=== PATIENT | female | born 1970 | race African-American/Black ===

== ENCOUNTER 2019-02-10 19:02 | Emergency (ER) | payer OTHER ==
[~2019-02-10] VITALS: Ht 180.3 cm; Wt 81.8 kg
[2019-02-10 19:14] VITALS: BP 120/57
== END 2019-02-10 20:59 | disposition left against medical advice (07) ==
LOC: EMS 19:04
DX: M79.672 Pain in left foot (principal); R51 Headache; F17.210 Nicotine dependence, cigarettes, uncomplicated

== ENCOUNTER 2019-02-11 10:02 | Inpatient (IN) | payer MEDICAID ==
[~2019-02-11] VITALS: Ht 180.3 cm; Wt 83.0 kg
[2019-02-11 11:01] VITALS: BP 130/76
[2019-02-11] MEDS ORDERED: HALOPERIDOL 5 MG TABLET PO PRN (11:15)
[2019-02-11] MEDS ORDERED: INFLUENZA VIRUS VACCINE QVS 2019-20 (3YR+)/PF 60 MCG/0.5 ML SYRINGE IM ONE (15:00)
[2019-02-11 16:05] VITALS: BP 132/72
[2019-02-11] MEDS: NICOTINE 21 MG/24 HOUR PATCH TD SCH (17:22)
[2019-02-11] MEDS: ZOLPIDEM TARTRATE 10 MG TABLET PO PRN (20:02)
[2019-02-12] MEDS ORDERED: PNEUMOCOCCAL VACCINE POLYVALENT 0.5 ML VIAL [PPSV23] IM ONE (00:15)
[2019-02-12 07:23] VITALS: BP 135/70
[2019-02-12 08:04] VITALS: BP 136/88
[2019-02-12 08:19] LABS: BASOPHILS % (AUTO) 0.3 % (0.0-2.0); EOSINOPHILS % (AUTO) 1.1 % (1.0-6.0); HEMATOCRIT 28.3 % (36-46); HEMOGLOBIN 9.4 g/dL (12.0-16.0); LYMPHOCYTES # (AUTO) 0.7 K/uL (1.0-4.8); MEAN CORPUSCULAR HEMOGLOBIN 32.1 pg (26.0-34.0); MEAN CORPUSCULAR HGB CONC 33.4 G/dL (31.0-37.0); MEAN CORPUSCULAR VOLUME 96 fL (80-100); MONOCYTES # (AUTO) 0.1 K/uL (0.1-1.0); MONOCYTES % (AUTO) 5.9 % (2.0-9.0); NEUTROPHILS % (AUTO) 54.7 % (40.0-70.0); PLATELET COUNT (AUTO) 323 K/uL (150-450); RED BLOOD CELL COUNT(AUTO) 2.94 MIL/uL (4.00-5.20); RED CELL DISTRIBUTION WIDTH 14.5 % (11.5-14.5)
[2019-02-12 08:53] LABS: HEMOGLOBIN A1C 6.4 % (4.5-6.2)
[2019-02-12] MEDS: NICOTINE 21 MG/24 HOUR PATCH TD SCH (09:06)
[2019-02-12 09:11] LABS: ALANINE AMINOTRANSFERASE 9 U/L (12-78); ALBUMIN 2.5 g/dL (3.4-5.0); ALKALINE PHOSPHATASE 47 U/L (46-116); ANION GAP 9 mmol/L (8-16); ASPARTATE AMINOTRANSFERASE 12 U/L (15-37); BILIRUBIN,TOTAL 0.3 mg/dL (0.1-1.0); CARBON DIOXIDE 26 mmol/L (22-29); CHLORIDE 105 mmol/L (98-107); CHOL/HDL RATIO 2.5 (3.9-5.7); CHOLESTEROL 64 mg/dL (131-200); CREATININE 0.76 mg/dL (0.60-1.30); FREE T4 (FREE THYROXINE) 0.99 ng/dL (0.76-1.46); GLOMERULAR FILTR. RATE CALC > 60 mL/min (>60); GLUCOSE,RANDOM 88 mg/dL (70-110); HCG,QUANTITATIVE 3 mIU/mL (0-6); HDL CHOLESTEROL 26 mg/dL (40-60); LDL CHOL (CALC.) 26 mg/dL (0-130); POTASSIUM 3.5 mmol/L (3.5-5.1); SODIUM SERUM 140 mmol/L (136-145); THYROID STIMULATING HORMONE 2.76 uIU/mL (0.36-3.74); TOTAL PROTEIN, SERUM 9.4 g/dL (6.4-8.2); TRIGLYCERIDES 61 mg/dL (15-150); UREA NITROGEN, BLOOD 11 mg/dL (7-18)
[2019-02-12 10:03] LABS: AMPHET/METH SCREEN,URINE NEGATIVE (NEGATIVE); BARBITURATE SCREEN, URINE NEGATIVE (NEGATIVE); BENZODIAZEPINES SCREEN,URINE NEGATIVE (NEGATIVE); CANNABINOID SCREEN,URINE POSITIVE (NEGATIVE); COCAINE SCREEN,URINE NEGATIVE (NEGATIVE); METHADONE SCREEN, URINE NEGATIVE (NEGATIVE); OPIATE SCREEN,URINE NEGATIVE (NEGATIVE)
[2019-02-12 10:11] LABS: APPEARANCE,URINE TURBID (CLEAR); GLUCOSE, URINE (UA) NEGATIVE (NEGATIVE); KETONES,URINE NEGATIVE (NEGATIVE); LEUKOCYTE ESTERASE ,URINE NEGATIVE (NEGATIVE); NITRATE,URINE NEGATIVE (NEGATIVE); OCCULT BLOOD,URINE NEGATIVE (NEGATIVE); PH,URINE 5.5 (5.0-8.0); PROTEIN,URINE POS 1+ (NEGATIVE); UROBILINOGEN,URINE 0.2 mg/dL (<=1.0)
[2019-02-12 10:20] LABS: BILIRUBIN,URINE PRELIM. POSITIVE (NEGATIVE)
[2019-02-12 10:42] LABS: PHENCYCLIDINE SCREEN,URINE NEGATIVE (NEGATIVE)
[2019-02-12 11:12] LABS: BACTERIA,URINE Many /HPF (None Seen); RBC,URINE None Seen /HPF (0-2); SQUAMOUS EPITHELIAL CELL,UR Rare /LPF (None Seen); WBC,URINE None Seen /HPF (0-5)
[2019-02-12 11:13] LABS: CALCIUM OXALATE CRYSTALS,UR Few /LPF (None Seen)
[2019-02-12] MEDS ORDERED: ONDANSETRON HCL 4 MG TABLET PO PRN (16:00)
[2019-02-12] MEDS ORDERED: CloNIDine HCL 0.1 MG TABLET PO PRN (16:00)
[2019-02-12] MEDS ORDERED: LOPERAMIDE HCL 2 MG CAPSULE PO PRN (16:00)
[2019-02-12] MEDS ORDERED: BACITRACIN 28.4 GM OINTMENT TP PRN (16:00)
[2019-02-12] MEDS ORDERED: IBUPROFEN 600 MG TABLET PO PRN (16:00)
[2019-02-12] MEDS ORDERED: BENZOCAINE/MENTHOL LOZENGE MM PRN (16:00)
[2019-02-12] MEDS ORDERED: MAG HYDROX/AL HYDROX/SIMETH ES 30 ML SUSPENSION UDCUP PO PRN (16:00)
[2019-02-12] MEDS ORDERED: ALBUTEROL SULFATE HFA 90 MCG/PUFF 8 GM INHALER IH PRN (16:00)
[2019-02-12] MEDS ORDERED: MAGNESIUM HYDROXIDE SUSPENSION 30 ML UDCUP PO PRN (16:00)
[2019-02-12] MEDS ORDERED: PETROLATUM,WHITE 28 GM JELLY TP PRN (16:00)
[2019-02-12 16:08] VITALS: BP 132/85
[2019-02-12 17:21] VITALS: BP 130/74
[2019-02-12] MEDS: ACETAMINOPHEN 325 MG TABLET PO PRN (17:45)
[2019-02-12] MEDS: ZOLPIDEM TARTRATE 10 MG TABLET PO PRN (20:39)
[2019-02-12] MEDS: FERROUS SULFATE 325 MG EC TABLET PO SCH (21:59)
[2019-02-13] MEDS: FERROUS SULFATE 325 MG EC TABLET PO SCH ×4 (06:56→21:01)
[2019-02-13 07:12] VITALS: BP 139/78
[2019-02-13 08:12] VITALS: BP 135/94
[2019-02-13] MEDS: OMEPRAZOLE 20 MG CAPSULE PO SCH (08:12)
[2019-02-13] MEDS: NICOTINE 21 MG/24 HOUR PATCH TD SCH (08:13)
[2019-02-13] MEDS: DOCUSATE SODIUM 100 MG CAPSULE PO SCH (08:13)
[2019-02-13] MEDS: CEPHALEXIN MONOHYDRATE 500 MG CAPSULE PO SCH ×2 (10:17→16:13)
[2019-02-13] MEDS: ACETAMINOPHEN 325 MG TABLET PO PRN (12:15)
[2019-02-13 16:04] VITALS: BP 139/81
[2019-02-13] MEDS: ZOLPIDEM TARTRATE 10 MG TABLET PO PRN (23:49)
[2019-02-14] VITALS: BP 138/78
[2019-02-14] MEDS: FERROUS SULFATE 325 MG EC TABLET PO SCH ×4 (07:08→21:05)
[2019-02-14] MEDS: CEPHALEXIN MONOHYDRATE 500 MG CAPSULE PO SCH ×2 (08:20→16:42)
[2019-02-14] MEDS: DOCUSATE SODIUM 100 MG CAPSULE PO SCH (08:20)
[2019-02-14] MEDS: OMEPRAZOLE 20 MG CAPSULE PO SCH (08:20)
[2019-02-14] MEDS: NICOTINE 21 MG/24 HOUR PATCH TD SCH (08:20)
[2019-02-14 08:29] VITALS: BP 133/90
[2019-02-14 08:31] VITALS: BP 133/90
[2019-02-14] MEDS: ACETAMINOPHEN 325 MG TABLET PO PRN ×2 (12:58→21:28)
[2019-02-14 16:15] VITALS: BP 129/80
[2019-02-14] MEDS: ZOLPIDEM TARTRATE 10 MG TABLET PO PRN (21:05)
[2019-02-15 06:15] VITALS: BP 130/78
[2019-02-15] MEDS: FERROUS SULFATE 325 MG EC TABLET PO SCH ×2 (06:44→12:27)
[2019-02-15] MEDS: ACETAMINOPHEN 325 MG TABLET PO PRN ×2 (06:44→14:00)
[2019-02-15] MEDS: NICOTINE 21 MG/24 HOUR PATCH TD SCH (08:20)
[2019-02-15] MEDS: DOCUSATE SODIUM 100 MG CAPSULE PO SCH (08:20)
[2019-02-15] MEDS: OMEPRAZOLE 20 MG CAPSULE PO SCH (08:20)
[2019-02-15] MEDS: CEPHALEXIN MONOHYDRATE 500 MG CAPSULE PO SCH (08:21)
[2019-02-15 08:25] VITALS: BP 132/80
[2019-02-15] MEDS ORDERED: LAMO100 PO (14:33)
[2019-02-15] MEDS ORDERED: FERR-89 PO (14:46)
[2019-02-15] MEDS ORDERED: CEPH500 PO (14:50)
[2019-02-15] MEDS ORDERED: LamoTRIgine 100 MG TABLET PO SCH (21:00)
== END 2019-02-15 17:40 | disposition home or self-care (01) | DRG 754 ==
LOC: B3A 12:05
PROVIDERS: ADMIT Psychiatry & Neurology Psychiatry; ATTEND Psychiatry & Neurology Psychiatry
DX: F32.9 Major depressive disorder, single episode, unspecified (principal); R45.851 Suicidal ideations; F17.200 Nicotine dependence, unspecified, uncomplicated; F41.9 Anxiety disorder, unspecified; G47.00 Insomnia, unspecified; K59.00 Constipation, unspecified; Z28.21 Immunization not carried out because of patient refusal
CPT/HCPCS: 80307; 83036; 84439; 84443; 87086; 90732